=== PATIENT | female | born 1990 | race Caucasian/White ===

== ENCOUNTER 2016-04-03 15:40 | Emergency (ER) | payer BC, OTHER ==
[2016-04-03 16:38] VITALS: BP 122/86
--- NOTE | 2016-04-03 16:49 | UC ---
Ear Complaint HPI - HPI Summary HPI Summary: right ear feels plugged, can't hear well. Mildly painful. NO recent URI symptoms or congestion. NO fever. No trauma to ears. As a child, she had to have ears flushed out once and this feels similar. - History of Current Complaint Chief Complaint: UCEar Stated Complaint: RIGHT EAR Time Seen by Provider: 04/03/16 16:40 Hx Obtained From: Patient Hx Last Menstrual Period: 03/03/16 Onset/Duration: Gradual Onset, Lasting Days - 5 Severity Initially: Mild Severity Currently: Moderate Aggravating Factors: Nothing Alleviating Factors: Nothing Associated Signs/Symptoms: Positive: Hearing Loss, Foreign Body Sensation. Negative: Trauma to Ear, Swelling @, URI Symptoms - Allergies/Home Medications Allergies/Adverse Reactions: Allergies Allergy/AdvReac Type Severity Reaction Status Date / Time No Known Allergies Allergy Verified 04/03/16 16:33 PMH/Surg Hx/FS Hx/Imm Hx Previously Healthy: Yes - Surgical History Surgical History: Yes Surgery Procedure, Year, and Place: wisdom teeth extraction July 2015 - Family History Known Family History: Positive: None - Social History Occupation: Employed Full-time Lives: With Family Alcohol Use: None Substance Use Type: None Smoking Status (MU): Never Smoked Tobacco Review of Systems Constitutional: Negative Skin: Negative Eyes: Negative ENT: Ear Ache Respiratory: Negative Cardiovascular: Negative Gastrointestinal: Negative Genitourinary: Negative Motor: Negative Neurovascular: Negative Musculoskeletal: Negative Neurological: Negative Psychological: Negative All Other Systems Reviewed And Are Negative: Yes Physical Exam Triage Information Reviewed: Yes Appearance: Well-Appearing, No Pain Distress, Well-Nourished Vital Signs: Initial Vital Signs Temp 98.7 F 04/03/16 16:34 Pulse 79 04/03/16 16:34 Resp 16 04/03/16 16:34 BP 122/86 04/03/16 16:34 Pulse Ox 100 04/03/16 16:34 Eye Exam: Normal ENT Exam: Other - both canals occluded with wax Neck exam: Normal Neck: Positive: Supple Respiratory Exam: Normal Cardiovascular Exam: Normal Musculoskeletal Exam: Normal Neurological Exam: Normal Psychological Exam: Normal Skin Exam: Normal Re-Evaluation - Re-Evaluation First Eval Re-Evaluation Time: 17:05 Change: Improved Comment: ears flushed out. Canals clear. Right side slightly erythematous and swollen Ear Complaint Course/Dx - Differential Dx/Diagnosis Differential Diagnosis/HQI/PQRI: Cerumen Impaction Provider Diagnoses: cerumen impaction Discharge - Discharge Plan Condition: Stable Disposition: HOME Prescriptions: Neomyc/Polym/HC 1% OTIC SUSP* [Cortisporin Otic Susp 1%*] 4 drop BOTH EARS QID # 1 btl Patient Education Materials: Cerumen Impaction (ED)
== END 2016-04-03 17:11 | disposition home or self-care (01) ==
LOC: UCCORT 15:40
DX: H61.20 Impacted cerumen, unspecified ear (principal)
CPT/HCPCS: 99213; G0463